=== PATIENT | male | born 1955 | race Caucasian/White ===

== ENCOUNTER 2019-09-18 15:10 | Observation (INO) | payer MEDICARE, MEDICAID ==
[2019-09-18] VITALS (9 sets, daily range): BP systolic 109–131; BP diastolic 66–77
[~2019-09-18] VITALS: Ht 180.3 cm; Wt 76.4 kg
[2019-09-18 15:51] LABS: BASOPHILS # (AUTO) 0.1 X10'3 (0-0.2); BASOPHILS % (AUTO) 0.7 % (0-1); EOSINOPHILS # (AUTO) 0.1 X10'3 (0-0.9); EOSINOPHILS % (AUTO) 0.9 % (0-6); HEMATOCRIT 39.6 % (42.0-52.0); HEMOGLOBIN 13.5 g/dl (14.0-17.9); LYMPHOCYTES # (AUTO) 1.9 X10'3 (1.1-4.8); LYMPHOCYTES % (AUTO) 18.5 % (21-51); MEAN CORPUSCULAR HEMOGLOBIN 29.9 PG (27.0-31.0); MEAN CORPUSCULAR HGB CONC 34.1 g/dL (33.0-36.5); MEAN CORPUSCULAR VOLUME 87.6 FL (78-98); MEAN PLATELET VOLUME 8.1 FL (7.4-10.4); MONOCYTES # (AUTO) 1.4 X10'3 (0-0.9); MONOCYTES % (AUTO) 13.4 % (2-12); NEUTROPHILS # (AUTO) 6.8 X10'3 (1.8-7.7); NEUTROPHILS % (AUTO) 66.5 % (42-75); PLATELET COUNT 388 X10'3 (140-440); RED BLOOD COUNT 4.52 X10'6 (4.70-6.10); RED CELL DISTRIBUTION WIDTH 12.7 % (11.5-14.5); WHITE BLOOD COUNT 10.2 X10'3 (4.5-11.0)
[2019-09-18 15:56] LABS: CLARITY,URINE CLOUDY (Clear); COLOR,URINE YELLOW (Yellow); GLUCOSE, URINE NEGATIVE (Neg); KETONES,URINE TRACE mg/dl (Neg); LEUKOCYTE ESTERASE ,URINE LARGE (Neg); NITRITES, URINE NEGATIVE (Neg); OCCULT BLOOD,URINE MODERATE (Neg); PH,URINE 6.5 (4.8-8.0); PROTEIN,URINE 30 mg/dl (Neg); UROBILINOGEN,URINE 0.2 E.U/dL (0.2-1.0)
[2019-09-18 15:57] LABS: UA COLLECTION TYPE URINAL
[2019-09-18 16:03] LABS: PARTIAL THROMBOPLASTIN TIME 32 SECONDS (22-32)
[2019-09-18 16:03] LABS: BACTERIA,URINE 2+ /HPF (Neg); MUCUS STRANDS NONE SEEN /LPF (Neg); SQUAMOUS EPITHELIAL CELL,UR NONE SEEN /LPF (FEW); WBC CLUMPS,URINE MANY /HPF (NEGATIVE); WBC,URINE TNTC /HPF (0-4)
[2019-09-18 16:05] LABS: ALANINE AMINOTRANSFERASE 14 U/L (12-78); ALBUMIN 2.9 G/DL (3.4-5.0); ALBUMIN/GLOBULIN RATIO 0.8 (1.1-1.5); ALKALINE PHOSPHATASE 85 IU/L (46-116); ANION GAP 8 (8-16); ASPARTATE AMINO TRANSFERASE 19 U/L (10-37); BILIRUBIN,TOTAL 0.6 MG/DL (0.1-1.0); BLOOD UREA NITROGEN 17 MG/DL (7-18); BUN/CREATININE RATIO 16.2 (5.4-32.0); CALCIUM 9.2 MG/DL (8.5-10.1); CHLORIDE 105 MMOL/L (99-107); CREATININE 1.05 MG/DL (0.60-1.10); GLUCOSE 82 MG/DL (70-104); POTASSIUM 4.9 MMOL/L (3.5-5.1); SODIUM 139 MMOL/L (135-145); TOTAL CARBON DIOXIDE 26.3 MMOL/L (24-32); TOTAL PROTEIN 6.4 G/DL (6.4-8.2); eGFR 71 ML/MIN
[2019-09-18] MEDS ORDERED: LIDOcaine 2% 10ml TOPICAL JELLY (Urojet) MM ONE (16:55)
[2019-09-18] MEDS ORDERED: fentaNYL/PF 50MCG/1 ML 2ML syringe IV ONE ×2 (17:05→17:30)
[2019-09-18] MEDS ORDERED: fentaNYL/PF 50MCG/1 ML 2ML syringe ONE (17:31)
[2019-09-18] MEDS ORDERED: LIDOcaine 1% W/epiNEPHrine 1:100,000 20ml vial SQ ONE (17:35)
--- NOTE | 2019-09-18 19:01 | NUR ---
Pt will go to the OR [facility]
[2019-09-18] MEDS ORDERED: ceFAZolin 1GM/D5W- ADD-VANTAGE 50 ML IV ONE (19:05)
[2019-09-18] MEDS ORDERED: BUSP10TA3 PO (19:35)
[2019-09-18] MEDS ORDERED: BREX4TAB PO (19:35)
[2019-09-18] MEDS ORDERED: LISI40TA4 PO (19:35)
[2019-09-18] MEDS ORDERED: ARIP5TAB60 PO (19:35)
[2019-09-18] MEDS ORDERED: TRIH5TAB2 PO (19:35)
[2019-09-18] MEDS ORDERED: VILA20TA PO (19:35)
[2019-09-18] MEDS ORDERED: ringers solution, lacted 1,000 ML IV SCH (19:41)
[2019-09-18] MEDS ORDERED: sevoflurane 250ml liquid IH ONE (19:45)
[2019-09-18] MEDS ORDERED: ondansetron/PF 4mg/2ml inj IV PRN ×2 (19:45→21:05)
[2019-09-18] MEDS ORDERED: morphine 2 MG/ML inj. syringe IV PRN ×2 (19:45→21:10)
[2019-09-18] MEDS ORDERED: meperidine/PF 25mg/ml syringe IV PRN (19:45)
[2019-09-18] MEDS ORDERED: proCHLORperazine 10 MG/2 ml inj IV PRN (19:45)
[2019-09-18] MEDS ORDERED: HYDROmorphone inj. 0.5 MG/0.5 ML DISP.SYRIN IV PRN ×2 (19:45)
[2019-09-18] MEDS ORDERED: morphine 4 MG/ML inj SYRINge IV PRN (19:45)
[2019-09-18] MEDS ORDERED: midazolam 2 mg/2 ml injection ONE (19:53)
[2019-09-18] MEDS ORDERED: LIDOcaine 2% (20mg/ml) 5ml vial ONE (20:55)
[2019-09-18] MEDS ORDERED: propofol inj 20 ML IV ONE (20:55)
[2019-09-18] MEDS ORDERED: acetaminophen 325mg tablet PO PRN (21:05)
--- NOTE | 2019-09-18 21:16 | NUR ---
Received from OR via , accompanied by Anesthesiologist DR COX and report given by Anesthesiologist. PT DROWSY, DENEIS PAIN, MUMBLES AND IS DIFFICULT TO UNDERSTAND, PEGUERO'S X 4, SCHUMACHER CATHETER TO GRAVITY DRAINAGE W/PINK URINE IN TUBING. Addendum: 09/18/19 at 2141 by Maryjo Riddle RN Amended: Links added.
--- NOTE | 2019-09-18 21:46 | NUR ---
Report called to receiving nurse. Transferred via BED, 2 BAGS OF Belongings SENT W/PT TO ROOM 348A, RECEIVING RN AT BEDSIDE TO RECEIVE PT, BLL, CALL LIGHT GIVEN, SIDE RAILS UP X 2. Special Issues communicated to receiving nurse. YES. Addendum: 09/18/19 at 2202 by Maryjo Riddle RN Amended: Links added.
[2019-09-19] VITALS: BP_SYST 110; BP_SYST 98; BP_DIAS 63; BP_DIAS 70
[2019-09-19 01:00] VITALS: BP 108/53
[2019-09-19] MEDS: HYDROcodone/acetaminophen 5mg/325mg tablet PO PRN ×2 (05:33→13:32)
[2019-09-19] MEDS: ceFAZolin/D5W- 1GM premix 50 ML IV SCH ×2 (05:51→12:08)
[2019-09-19 07:00] VITALS: BP 83/40
[2019-09-19 07:15] VITALS: BP 92/53
[2019-09-19] MEDS ORDERED: trihexyphenidyl HCL 5 MG tablet PO SCH (08:00)
[2019-09-19] MEDS ORDERED: aripiprazole 5mg tablet PO SCH (08:00)
[2019-09-19] MEDS ORDERED: lisinopril 20mg tablet PO SCH (08:00)
[2019-09-19] MEDS ORDERED: BREXPIPRAZOLE PO SCH (08:00)
[2019-09-19] MEDS ORDERED: normal saline 1000ml 1,000 ML IV ONE (08:40)
--- NOTE | 2019-09-19 09:00 | NUR ---
Coyne catheter removed per order, patient tolerated well.
[2019-09-19] MEDS: busPIRone 5mg tablet PO SCH ×2 (09:34→12:07)
[2019-09-19 11:30] VITALS: BP 88/52
[2019-09-19] MEDS ORDERED: normal saline 1000ml 1,000 ML IVB ONE (12:54)
--- NOTE | 2019-09-19 15:47 | NUR ---
Malnutrition consult: Pt seen at bedside reports UBW 170 lbs with wt loss of 50 lbs in one month, however current stated wt is 150 lbs. Only wt hx in EMR is 150 lb taken December 2011 with chair scale. Pt reports low PO intake BUDGET ASSISTANT secondary to depression, however currently endorsing a good appetite and requesting extra food. Pt currently on a regular diet documented with 100% PO intake meeting nutrient needs. Pt with no decrease in muscle strength, edema, or visible fat/muscle wasting. Pt currently does not meet criteria for malnutrition. Pt denies food allergies and reports difficulty chewing. Pt agrees to soft to chew food and requests a vegetarian diet stating he will eat eggs, dairy, tofu, cottage cheese, yogurt, and peanut butter as protein sources. Preferences were d/t dietary. Will continue to follow. Addendum: 09/19/19 at [address] Amended: Links added.
--- NOTE | 2019-09-19 16:11 | NUR ---
Patient discharged home via [facility]. IV x2 removed, all belongings taken from room. Discharge instructions given and reviewed with patient. Dr Gallardo number has been highlighted for him. No new medications ordered. Patient verbalized understanding of discharge. reinforced the importance of following up with primary care and establishing urologist.
[2019-09-19] MEDS ORDERED: lactobacillus rhamnosus 10,000 MMU CELLS/CAPSULE PO SCH (20:00)
[2019-09-19] MEDS ORDERED: VILAZODONE HYDROCHLORIDE PO SCH (21:00)
== END 2019-09-19 16:10 | disposition home or self-care (01) ==
LOC: ER 15:11 → PACU 20:01 → SUR 3N 21:35
PROVIDERS: ADMIT Student in an Organized Health Care Education/Training Program; ATTEND Student in an Organized Health Care Education/Training Program
DX: T19.0XXA Foreign body in urethra, initial encounter (principal); T19.4XXA Foreign body in penis, initial encounter; S37.30XA Unspecified injury of urethra, initial encounter; F20.9 Schizophrenia, unspecified; F15.90 Other stimulant use, unspecified, uncomplicated; Z79.899 Other long term (current) drug therapy; X58.XXXA Exposure to other specified factors, initial encounter; Y92.89 Other specified places as the place of occurrence of the external cause; Y93.89 Activity, other specified
CPT/HCPCS: 36415; 52310; 80053; 81001; 85025; 85610; 85730; 87077; 87088; 87186; 96365; 96366; 96375; 99284; G0378; J0690; J2001; J2175; J2250; J2704; J3010; J7030; J7120; A4357; A4618